=== PATIENT | female | born 1980 | race African-American/Black ===

== ENCOUNTER 2018-04-11 12:41 | Emergency (ER) | payer MEDICAID, OTHER ==
[~2018-04-11] VITALS: Ht 160 cm; Wt 107.0 kg
[~2018-04-11 12:41] MED LIST: LISI-363 PO; TRAZ50TA4 PO
[2018-04-11 12:45] VITALS: BP 157/94; PULSE 84; RESP 16; TEMP 97.2; O2SAT 99
[2018-04-11] MEDS ORDERED: KETOROLAC TROMETHAMINE 60 MG/2 ML (IM) VIAL IM ONE (13:00)
--- NOTE | 2018-04-11 13:03 | PD ---
HPI Chief Complaint: Musculoskeletal Complaint Time Seen by Provider: 12:48 Travel History International Travel<30 days: No Contact w/Intl Traveler<30days: No Traveled to known affect area: No History of Present Illness HPI 37-year-old female here with low back and hip pain for 8 months. She recently had x-rays of the back and hip which were negative for fracture per patient. Her pain management doctor recommended injections into the spine and physical therapy. She is currently taking ibuprofen with minimal relief. Reports the pain is localized to the right gluteal region which radiates down into the thigh. Described his aching pain. She denies any recent injury or trauma. No fever chills. No weakness of the extremities. No incontinence or saddle anesthesia. Symptom severity is moderate. Aggravated by movement and relieved with rest. PFSH Past Medical History Cardiovascular Problems: Yes Genitourinary: No Musculoskeletal: Yes (pain in her legs when she is standing up for long time ) Neurologic: No Reproductive: No Respiratory: No ?: Not LMP: 03/10/18 Social History Alcohol Use: Yes (1 drink every couple of months. ) Tobacco Use: Yes (CIGARS) Substance Use: No Allergies-Medications (Allergen,Severity, Reaction): Coded Allergies: penicillin G (Unverified Allergy, Severe, FAMILY, 04/11/18) Reported Meds & Prescriptions Reported Meds & Active Scripts Active Review of Systems Except as stated in HPI: all other systems reviewed are Neg General / Constitutional: No: Fever Eyes: No: Visual changes HENT: No: Headaches Cardiovascular: No: Chest Pain or Discomfort Respiratory: No: Shortness of Breath Gastrointestinal: No: Abdominal Pain Genitourinary: No: Dysuria Skin: No Rash Neurologic: No: Weakness Physical Exam Narrative GENERAL: Alert and well-appearing 37-year-old female. Ambulates with a steady gait SKIN: Warm and dry. HEAD: Normocephalic. EYES: No scleral icterus. No injection or drainage. NECK: Supple CARDIOVASCULAR: Regular rate and rhythm RESPIRATORY: Breath sounds equal bilaterally. No accessory muscle use. GASTROINTESTINAL: Abdomen soft, non-tender, nondistended. MUSCULOSKELETAL: No cyanosis, or edema. 5/5 strength of dorsiflexion, plantar flexion, knee and hip flexion bilaterally. Sensation intact to light touch distally. BACK: Nontender without obvious deformity. No CVA tenderness. No midline tenderness to palpation. Mild tenderness to palpation of the right-sided paraspinal musculature in the lumbar area and over the right sacroiliac joint. Data Data Last Documented VS Vital Signs Date Time Temp Pulse Resp B/P (MAP) Pulse Ox O2 Delivery O2 Flow Rate FiO2 04/11/18 12:45 97.2 84 16 157/94 (115) 99 Orders Orders Ketorolac Inj (Toradol Inj) (04/11/18 13:00) MDM Medical Decision Making Medical Screen Exam Complete: Yes Emergency Medical Condition: Yes Differential Diagnosis Sciatica, lumbar strain, herniated disc Narrative Course 37-year-old female with exam consistent with sciatica pain. She has a normal neurologic exam. She is given a shot of Toradol. Diagnosis Primary Impression: Sciatica Qualified Codes: M54.31 - Sciatica, right side Referrals: Osman Jerome MD Orthopedist Additional Instructions: Medication as directed. Avoid heavy lifting or strenuous activity. Follow-up with healthcare specialist Scripts Methocarbamol (Robaxin) 750 Mg Tab 750 MG PO QID for Muscle Spasm, #12 TAB 0 Refills Prov: Shannan Fajardo 04/11/18 Ketorolac (Ketorolac) 10 Mg Tab 10 MG PO TID for Pain Management, #15 TAB 0 Refills Prov: Shannan Fajardo 04/11/18 Disposition: 01 DISCHARGE HOME Condition: Stable Shannan Fajardo Apr 11, 2018 13:03
[2018-04-11] MEDS ORDERED: KETO10 PO (13:15)
[2018-04-11] MEDS ORDERED: ROBA750T PO (13:15)
== END 2018-04-11 13:49 | disposition home or self-care (01) ==
LOC: PHEFT 12:41
DX: M54.31 Sciatica, right side (principal); M25.559 Pain in unspecified hip; F17.290 Nicotine dependence, other tobacco product, uncomplicated; Z88.0 Allergy status to penicillin
CPT/HCPCS: 96372; 99283; J1885